=== PATIENT | male | born 1995 | race Caucasian/White ===

== ENCOUNTER 2018-02-19 05:29 | Day surgery (SDC) | payer SELFPAY ==
[2018-02-19] VITALS (9 sets, daily range): BP systolic 120–160; BP diastolic 58–105; PULSE 78–114; RESP 16–18; TEMP 36.1–37.7; O2SAT 93–99; BMI 22.0
[2018-02-19] MEDS: Cefazolin 2 GM in 0.9% Normal Saline 100 ML IV (07:20)
--- NOTE | 2018-02-19 07:25 | RAD_ITS ---
STUDY: X-RAY - RIGHT ANKLE REASON FOR EXAM: Male, 22 years old. [Reduction and internal fixation of the distal fibula fracture. TECHNIQUE: 3 view(s) of the ankle. 5 intraoperative images. COMPARISON: None. FINDINGS: The patient is status post open reduction and internal fixation of the distal fibular fracture utilizing screw and sideplate fixation device. Metallic screws are also seen at the distal fibular tibial joint. RAD/Ankle 2 Views IMPRESSION: Fluoroscopic service was provided for open reduction and internal fixation of the distal fibular fracture. Electronically Signed: Emile Zurita MD at 13:38 EST Tel [phone], Service support ,
--- NOTE | 2018-02-19 10:00 | OP.PN_ITS ---
Immediate Post-Op Note Date of Procedure: 02/19/18 Primary Surgeon/Physician: Elida Poe DPM director external communications: Olu Carrillo Pre-Operative Diagnosis: R ankle fracture, dislocation Post-Operative Diagnosis: same Surgery/Procedure Performed:: revisional R ankle ORIF Description of Surgical Findings:: see dictation Estimated Blood Loss: minimal Specimen's removed: none Drains: none Type of Anesthesia:: General/Regional - Admit VTE Documentation VTE Present on Admission: No VTE Mechan Device Prophylaxis: SCD's, Knee High CAMMY Hose VTE Pharm Prophylaxis ordered?: Yes
--- NOTE | 2018-02-19 10:00 | PCM.DC.ORTHO ---
Discharge Activity: May Not Drive, May not drive while taking narcotic pain medications., May Not Shower, Use Walker, Use Crutches Ice area for (Minutes): 20 - behind right knee 20 minutes of each hour while awake Weight Bearing Status: No weight bearing Keep extremity elevated above heart level: Operative Extremity Call your doctor if your incision/area has: Sudden Increased Bleeding, Increased Pain/ Swelling Call your doctor if you observe: Fever of 101 or Higher, Shortness of breath, Chest pain, Increased palpitations (irregular heartbeat), Calf discomfort, Uncontrolled pain Cleanse incision/area with: Keep Dressing Clean & Dry Allergies/Adverse Reactions: Allergies No Known Allergies Allergy (Verified 02/16/18 13:06) Medications to take at Discharge Doxycycline Hyclate 100 mg PO BID 14 Days #28 tab 02/19/18 Oxycodone HCl [Oxaydo] 5 mg PO Q4H PRN 7 Days #35 tab 02/19/18 The following prescriptions were given: Oxycodone HCl [Oxaydo] 5 mg PO Q4H PRN 7 Days #35 tab PRN Reason: Pain Doxycycline Hyclate 100 mg PO BID 14 Days #28 tab Primary Care Physician: Care Physician,No Primary [Primary Care Provider] - Test Results: Test results from this visit will be discussed in further detail at your follow-up appointment, if applicable. Please Follow Up With: Elida Poe DPM - Please see me for your post operative appointment on February 28 at the [place] office. Proposed Discharge Date: 02/19/18
--- NOTE | 2018-02-19 10:05 | DCINST_ITS ---
Discharge Activity: May Not Drive, May not drive while taking narcotic pain medications., May Not Shower, Use Walker, Use Crutches Ice area for (Minutes): 20 - behind right knee 20 minutes of each hour while awake Weight Bearing Status: No weight bearing Keep extremity elevated above heart level: Operative Extremity Call your doctor if your incision/area has: Sudden Increased Bleeding, Increased Pain/ Swelling Call your doctor if you observe: Fever of 101 or Higher, Shortness of breath, Chest pain, Increased palpitations (irregular heartbeat), Calf discomfort, Uncontrolled pain Cleanse incision/area with: Keep Dressing Clean & Dry Allergies/Adverse Reactions: Allergies No Known Allergies Allergy (Verified 02/16/18 13:06) Medications to take at Discharge Doxycycline Hyclate 100 mg PO BID 14 Days #28 tab 02/19/18 Oxycodone HCl [Oxaydo] 5 mg PO Q4H PRN 7 Days #35 tab 02/19/18 The following prescriptions were given: Oxycodone HCl [Oxaydo] 5 mg PO Q4H PRN 7 Days #35 tab PRN Reason: Pain Doxycycline Hyclate 100 mg PO BID 14 Days #28 tab Primary Care Physician: Care Physician,No Primary [Primary Care Provider] - Test Results: Test results from this visit will be discussed in further detail at your follow- up appointment, if applicable. Please Follow Up With: Elida Poe DPM - Please see me for your post operative appointment on February 28 at the [place] office. Proposed Discharge Date: 02/19/18
--- NOTE | 2018-02-19 10:30 | RAD_ITS ---
STUDY: X-RAY - RIGHT ANKLE REASON FOR EXAM: Male, 22 years old. Status post ORIF of the ankle. TECHNIQUE: 3 view(s) of the ankle. COMPARISON: Comparison is made with prior examination done earlier today. FINDINGS: The patient is status post open reduction and internal fixation of the distal fibula using screw and sideplate fixation device. Screws are also seen at the tibial fibular joint. Normal tibiotalar articulation and ankle mortise. Normal visualized talus and calcaneus. The visualized subtalar, talonavicular, calcaneocuboid and tarsal articulations are normal. Postoperative soft tissue changes. RAD/Ankle min 3 Views IMPRESSION: Status post open reduction internal fixation of the distal fibular fracture. There is good alignment. Electronically Signed: Emile Zurita MD at 14:50 EST Tel [phone], Service support ,
--- NOTE | 2018-02-19 10:39 | EKG12_ITS ---
Test Reason : EKG CHANGES Blood Pressure : / mmHG Vent. Rate : 101 BPM Atrial Rate : 101 BPM P-R Int : 136 ms QRS Dur : 086 ms QT Int : 304 ms P-R-T Axes : 073 080 056 degrees QTc Int : 394 ms Sinus tachycardia Otherwise normal ECG No previous ECGs available Confirmed by CAMILLA LUEVANO, RAMSES ([id number]), assignment desk editor SPRING MAGAÑA ([id number]) on 02/23/2018 2:15:11 PM Referred By: Elida Poe Confirmed By:RAMSES SAMPSON MD
[2018-02-19] MEDS: Ketorolac 30 MG/ML Syringe IV (10:53)
--- NOTE | 2018-02-21 18:33 | PCM.OPRPT ---
Report of Operation Date of Procedure: 02/19/18 Pre-Operative Diagnosis: R ankle fracture, dislocation Post-Operative Diagnosis: same Surgery/Procedure Performed:: revisional R ankle ORIF Description of Surgical Findings:: see dictation armament aircraft mechanic: Olu Carrillo Type of Anesthesia:: General/Regional Specimen's removed: none Drains: none Estimated Blood Loss (mL): minimal Description of Procedure: Indications: Pt is a 22 yo M known to me for a Right ankle fracture and dislocation. Zeb suffered a severe Right andkle fracture and dislocation while working when lumber fell from a truck on 12/27/2017. He was immediately taken to the [facility] where it was closed reduced by the ER physicians however the fibula was not brought out to length. He was splinted and told to seek follow up care. He was seen in my office one week later by our physician accounts receivable assistant and the following day by me. He had significant edema and hemorrhagic fracture blisters. He was dressed, compressed and splint until these resolved several weeks later. He was offered external fixation but deferred / cost. He presented to [facility] for R ankle ORIF on 01/16/2018. During that surgery it was extremely difficult to obtain the proper reduction of the fibular fracture obtain the proper length. His posterior malleolus fracture was well reduced and the syndesmosis was stabilized. It was determined he would either need a fibula lengthening procedure in the future or we would need to revise the fracture and obtain a better reduction. He and his family decided to proceed with surgery today in an attempt to get better fibula reduction and length. All risks, complications, and alternatives were discussed with the patient, and the patient signed an informed consent. No guarantees were given. Procedure: On 02/20/2018, Zeb Lui was visually and verbally identified in the preoperative holding area. The consent form was again reviewed with the patient, as were all risks, complications, and alternatives and the patient wished to proceed with the proposed surgery. The right lower leg was marked as the correct operative extremity. lead apron was placed on the bed to protect the patient during fluoroscopy.The patient was brought to the operating room and placed on the operating room table in the lazy lateral position. After general anesthesia, A surgical time out was performed and all present were in agreement. a pneumatic thigh tourniquet was then placed. At this time the right lower extremity was prepped and draped in the usual sterile fashion. after exsanguination with an esmarch the tourniquet was inflated to 300 mmHg. At this time attention was directed to the right lateral ankle. The previous incision was a posterolateral incision and appears well healed. The fibula fracture was localized on intra operative fluoroscopy as was the transyndesmotic screw. a small linear incision was made with a #15 blade over the transyndesmotic screw and once the screw head was visualized the screw was removed. Returning to the fibula shaft fracture, a linear incision was made with a #15 blade over the fracture and the proximal plate and screws. The incision was bluntly carried deep through the subcutaneous tissues with careful attention paid to all bleeders, which were clamped and tied or bovied as necessary. All vital neurovascular structures were retracted. The peroneals were retracted. The proximal two screws were visualized and removed. Dissection was carried proximal so that a 3.0 bicortical screw could be placed as a push-pull screw. This screw was inserted into the fibula. Only the distal screws were within the plate allowing the distal fracture fragment of the fibula to be moved. The fracture line was debrided of all soft tissue. Using a lamina supervisor corduroy cutting the push pull screw technique was utilized for reduction of the fracture. While improved reduction was noted it was not complete. I felt the push pull screw was too far from the proximal plate to obtain the length needed with the lamina supervisor corduroy cutting. I then removed the push pull screw and moved it distally so that it was placed closer to the proximal plate. Again using the lamina supervisor corduroy cutting and the push pull screw technique I attempted to reduce the fracture. Significant reduction was noted and maintained with bone reduction clamps however it was not anatomic alignment. The length of the fibula was also improved. Using a combination of bone reduction clamps and removing all soft tissue and a fragment of bone that impeded the reduction, a more satisfactory reduction was obtained. This was directly visualized and confirmed on intraoperative fluoroscopy. An interfragmentary screw was placed per AO technique however inadequate purchase was noted. The incision was lengthened to allow for screw implantation to the plater. After the plate was secured with a combination of locking and nonlocking screws the interfragmentary screw was removed as it was not adequate. Attention was then directly distally to the syndesmosis. A malleolar reduction clamp was applied and under intraoperative fluoroscopy the transyndesmotic screw was again placed through the plate with attention paid to avoid the posterior malleolar screws. The malleoli reduction clamp was removed and using the external rotation and hook test syndesmotic stability was noted to be maintained on intra operative fluoroscopy. The medial clear space also looked to be even with the tibiotalar joint. Due to the positioning of the plate, the posterior screws and the maintained stability of the syndesmosis and medial space when stressed I felt a second screw would not be possible or necessary. The incision was flushed with copious amounts of normal sterile saline. The fibula shaft fracture site was then packed with Karime Vitoss to aid in bone healing. Closure was then initiated with 2.0 vicryl for the deep structures, 3.0 vicryl for subcutaneous tissue and 3.0 prolene for skin closure. Adaptic and dry sterile dressings were then placed over the incision. A multilayer compressive bandage with a well padded posterior splint was then applied. Total tourniquet time was 120 minutes with immediate capillary refill noted to all digits upon deflation. Intra operative fluoroscopy was utilized throughout the case, > 1 hour, to aid in visualization and confirmation of fracture reduction and screw and plate fixations. Interpretation of the images was vital to my decision making process. The patient tolerated the procedure and anesthesia well. The patient was then transported to the postanesthesia care unit by a member of the anesthesia team and myself with all vital signs stable and neurovascular status of the right lower extremity equal to pre-operative levels. Anesthesia will perform a RLE lower sciatic block in PACU for pain control. Physician accounts receivable assistant was integral in all portions of this procedure. They assisted with positioning the patient, draping the extremity, holding retractors, closing the wound, and applying the dressing. This was all done under my direct supervision. The physician accounts receivable assistant was essential for a successful, efficient surgery. At the end of the case all sponge, needle and instrument counts were found to be correct. Grafts/Implants Used: Karime Variax plate and screws, Karime Vitoss - Complications none - Admit VTE Documentation VTE Mechan Device Prophylaxis: SCD's, Knee High CAMMY Hose VTE Pharm Prophylaxis ordered?: Yes
--- NOTE | 2018-02-21 19:10 | OP.PCM_ITS ---
Report of Operation Date of Procedure: 02/19/18 Pre-Operative Diagnosis: R ankle fracture, dislocation Post-Operative Diagnosis: same Surgery/Procedure Performed:: revisional R ankle ORIF Description of Surgical Findings:: see dictation underwriter solicitation director: Olu Carrillo Type of Anesthesia:: General/Regional Specimen's removed: none Drains: none Estimated Blood Loss (mL): minimal Description of Procedure: Indications: Pt is a 22 yo M known to me for a Right ankle fracture and dislocation. Zeb suffered a severe Right andkle fracture and dislocation while working when lumber fell from a truck on 12/27/2017. He was immediately taken to the [facility] where it was closed reduced by the ER physicians however the fibula was not brought out to length. He was splinted and told to seek follow up care. He was seen in my office one week later by our physician preschool teacher assistant and the following day by me. He had significant edema and hemorrhagic fracture blisters. He was dressed, compressed and splint until these resolved several weeks later. He was offered external fixation but deferred / cost. He presented to [facility] for R ankle ORIF on 01/16/2018. During that surgery it was extremely difficult to obtain the proper reduction of the fibular fracture obtain the proper length. His posterior malleolus fracture was well reduced and the syndesmosis was stabilized. It was determined he would either need a fibula lengthening procedure in the future or we would need to revise the fracture and obtain a better reduction. He and his family decided to proceed with surgery today in an attempt to get better fibula reduction and length. All risks, complications, and alternatives were discussed with the patient, and the patient signed an informed consent. No guarantees were given. Procedure: On 02/20/2018, Zeb Lui was visually and verbally identified in the preoperative holding area. The consent form was again reviewed with the patient, as were all risks, complications, and alternatives and the patient wished to proceed with the proposed surgery. The right lower leg was marked as the correct operative extremity. lead apron was placed on the bed to protect the patient during fluoroscopy.The patient was brought to the operating room and placed on the operating room table in the lazy lateral position. After general anesthesia, A surgical time out was performed and all present were in agreement. a pneumatic thigh tourniquet was then placed. At this time the right lower extremity was prepped and draped in the usual sterile fashion. after exsanguination with an esmarch the tourniquet was inflated to 300 mmHg. At this time attention was directed to the right lateral ankle. The previous incision was a posterolateral incision and appears well healed. The fibula fracture was localized on intra operative fluoroscopy as was the transyndesmotic screw. a small linear incision was made with a #15 blade over the transyndesmotic screw and once the screw head was visualized the screw was removed. Returning to the fibula shaft fracture, a linear incision was made with a #15 blade over the fracture and the proximal plate and screws. The incision was bluntly carried deep through the subcutaneous tissues with careful attention paid to all bleeders, which were clamped and tied or bovied as necessary. All vital neurovascular structures were retracted. The peroneals were retracted. The proximal two screws were visualized and removed. Dissection was carried proximal so that a 3.0 bicortical screw could be placed as a push-pull screw. This screw was inserted into the fibula. Only the distal screws were within the plate allowing the distal fracture fragment of the fibula to be moved. The fracture line was debrided of all soft tissue. Using a lamina dull coat mill operator the push pull screw technique was utilized for reduction of the fracture. While improved reduction was noted it was not complete. I felt the push pull screw was too far from the proximal plate to obtain the length needed with the lamina dull coat mill operator. I then removed the push pull screw and moved it distally so that it was placed closer to the proximal plate. Again using the lamina dull coat mill operator and the push pull screw technique I attempted to reduce the fracture. Significant reduction was noted and maintained with bone reduction clamps however it was not anatomic alignment. The length of the fibula was also improved. Using a combination of bone reduction clamps and removing all soft tissue and a fragment of bone that impeded the reduction, a more satisfactory reduction was obtained. This was directly visualized and confirmed on intraoperative fluoroscopy. An interfragmentary screw was placed per AO technique however inadequate purchase was noted. The incision was lengthened to allow for screw implantation to the plater. After the plate was secured with a combination of locking and nonlocking screws the interfragmentary screw was removed as it was not adequate. Attention was then directly distally to the syndesmosis. A malleolar reduction clamp was applied and under intraoperative fluoroscopy the transyndesmotic screw was again placed through the plate with attention paid to avoid the posterior malleolar screws. The malleoli reduction clamp was removed and using the external rotation and hook test syndesmotic stability was noted to be maintained on intra operative fluoroscopy. The medial clear space also looked to be even with the tibiotalar joint. Due to the positioning of the plate, the posterior screws and the maintained stability of the syndesmosis and medial space when stressed I felt a second screw would not be possible or necessary. The incision was flushed with copious amounts of normal sterile saline. The fibula shaft fracture site was then packed with Karime Vitoss to aid in bone healing. Closure was then initiated with 2.0 vicryl for the deep structures, 3.0 vicryl for subcutaneous tissue and 3.0 prolene for skin closure. Adaptic and dry sterile dressings were then placed over the incision. A multilayer compressive bandage with a well padded posterior splint was then applied. Total tourniquet time was 120 minutes with immediate capillary refill noted to all digits upon deflation. Intra operative fluoroscopy was utilized throughout the case, > 1 hour, to aid in visualization and confirmation of fracture reduction and screw and plate fixations. Interpretation of the images was vital to my decision making process. The patient tolerated the procedure and anesthesia well. The patient was then transported to the postanesthesia care unit by a member of the anesthesia team and myself with all vital signs stable and neurovascular status of the right lower extremity equal to pre-operative levels. Anesthesia will perform a RLE lower sciatic block in PACU for pain control. Physician preschool teacher assistant was integral in all portions of this procedure. They assist ed with positioning the patient, draping the extremity, holding retractors, closing the wound, and applying the dressing. This was all done under my direct supervision. The physician preschool teacher assistant was essential for a successful, efficient surgery. At the end of the case all sponge, needle and instrument counts were found to be correct. Grafts/Implants Used: Karime Variax plate and screws, Soper Vitoss - Complications none - Admit VTE Documentation VTE Mechan Device Prophylaxis: SCD's, Knee High CAMMY Hose VTE Pharm Prophylaxis ordered?: Yes
== END 2018-02-19 13:08 | disposition home or self-care (01) ==
LOC: SDC 05:30 → AC 05:32
PROVIDERS: Referring Provider Podiatrist Foot & Ankle Surgery; Visit Provider Podiatrist Foot & Ankle Surgery
DX: S82.841A Displaced bimalleolar fracture of right lower leg, initial encounter for closed fracture (principal); X58.XXXA Exposure to other specified factors, initial encounter; Y93.89 Activity, other specified; Y92.89 Other specified places as the place of occurrence of the external cause; Y99.0 Civilian activity done for income or pay; R60.0 Localized edema; I89.8 Other specified noninfective disorders of lymphatic vessels and lymph nodes
CPT/HCPCS: 01480; 27814; 64445; 73600; 73610; 76000; 93005; C1713; J7120; J2405